=== PATIENT | female | born 1970 | race Caucasian/White ===

== ENCOUNTER 2017-05-26 06:33 | Inpatient (IN) | payer BC ==
--- NOTE | 2017-05-20 13:35 | RAD ---
INDICATION: Preoperative assessment for laparoscopic gastrectomy. Morbid obesity. History of tobacco use. COMPARISON: No relevant prior exams available on the [facility] [place]. TECHNIQUE: Dual energy PA and routine lateral views of the chest were obtained. REPORT: Clear lungs and pleural spaces. The heart, pulmonary vasculature, and mediastinal contours are unremarkable. Unremarkable osseous structures and soft tissue contours. IMPRESSION: No evidence for acute intrathoracic disease.
[~2017-05-26 06:33] MED LIST: Acetaminophen TAB* 325 MG PO ONE; Buffered Lidocaine 0.9% SYRIN* 5 ML/SYR SYRINGE INTRADERM ONE; Famotidine IV* 10 MG/ML 2 ML (20 mg) IV ONE; Metoclopramide IV* 5 MG/ML 2 ML VIAL IV SLOW PU ONE
[2017-05-26] MEDS ORDERED: Heparin VIAL(*) 5000 UNITS/ML VIAL (FIVE THOUSAND) ONE (06:46)
[2017-05-26] MEDS ORDERED: Acetaminophen TAB* 325 MG ONE (06:46)
[2017-05-26] MEDS ORDERED: Famotidine IV* 10 MG/ML 2 ML (20 mg) ONE (06:46)
[2017-05-26] MEDS ORDERED: Metoclopramide IV* 5 MG/ML 2 ML VIAL ONE (06:46)
[2017-05-26] MEDS ORDERED: Buffered Lidocaine 0.9% SYRIN* 5 ML/SYR SYRINGE ONE (06:46)
[2017-05-26] MEDS ORDERED: ceFAZolin 1 GM ADVAN(*) 1 GM ADDV.VIAL IVPB ONE (06:46)
[2017-05-26] MEDS ORDERED: ceFAZolin 2 GM PREMIX (*) 50 ML IVPB ONE (06:46)
[2017-05-26] MEDS ORDERED: Clindamycin 900 MG IVPREMIX(* 900 MG/50 ML SDV IV ONE (07:00)
[2017-05-26] MEDS ORDERED: Midazolam* 1 MG/ML 2 ML VIAL (2 MG) ONE (07:11)
[2017-05-26] MEDS ORDERED: Propofol* 10 MG/ML 20 ML BTL IV PUSH ONE (07:11)
[2017-05-26] MEDS ORDERED: Lidocaine 2% PF * 5 ML VIAL ONE (07:11)
[2017-05-26] MEDS ORDERED: Rocuronium* 10 MG/ML VIAL ONE (07:11)
[2017-05-26] MEDS ORDERED: fentaNYL* 50 MCG/ML 5 ML VIAL (250 MCG VIAL) ONE (07:11)
[2017-05-26] MEDS ORDERED: Bupivacaine 0.5% SDV PF* 30 ML VIAL ONE (07:12)
[2017-05-26] MEDS ORDERED: HYDROcodone/ACETAMIN 5-325 MG* 1 TAB PO PRN (08:47)
[2017-05-26] MEDS ORDERED: DiMENhydriNATE IV* 50 MG/ML VIAL IV PUSH PRN (08:47)
[2017-05-26] MEDS ORDERED: Scopolamine 1.5 mg* PATCH TRANSDERM PRN (08:47)
[2017-05-26] MEDS ORDERED: fentaNYL* 50 MCG/ML 2 ML VIAL (100 MCG VIAL) ONE ×2 (08:58→10:13)
[2017-05-26] MEDS ORDERED: Ketorolac INJ* 30 MG/ML 1 ML VIAL IV PRN (09:48)
[2017-05-26] MEDS ORDERED: diPHENhydraMINE IV* 50 MG/ML 1 ml VIAL (BENADRYL) SLOW PUSH PRN (09:48)
[2017-05-26] MEDS ORDERED: Acetaminophen ADULT LIQ* 650 MG/20.3 ML UDC PO PRN (09:48)
--- NOTE | 2017-05-26 09:59 | SURGPN ---
Brief Operative Note - Surgery Procedures: PREOP DX: MORBID OBESITY POSTOP DX: SAME AND HIATAL HERNIA PROC: LAP SLEEVE GASTRECTOMY AND REPAIR OF HIATAL HERNIA SURG: MECENAS ASSIST: LASHAY GALVIN: MEERA SALGADO EBL: MIN SPEC: PORTION OF STOMACH DRAIN/COMPL: NONE COND: STABLE; TO RR EXTUBATED; TO RR
[2017-05-26] MEDS ORDERED: DiMENhydriNATE IV* 50 MG/ML VIAL ONE (10:13)
[2017-05-26] MEDS ORDERED: hydrALAZINE IV* 20 MG/ML VIAL ONE (10:14)
[2017-05-26] MEDS: fentaNYL* 50 MCG/ML 2 ML VIAL (100 MCG VIAL) IV PRN ×4 (10:16→10:50)
[2017-05-26] MEDS ORDERED: Scopolamine 1.5 mg* PATCH ONE (10:39)
[2017-05-26] MEDS ORDERED: HYDROmorphone* 1 MG/ML 1 ML SYR ONE (10:59)
[2017-05-26] MEDS: HYDROmorphone* 1 MG/ML 1 ML SYR IV PRN ×2 (11:00→11:11)
[2017-05-26] MEDS ORDERED: Ondansetron INJ* 2 MG/ML VIAL ONE (11:04)
[2017-05-26] MEDS: Pantoprazole IV* 40 MG IV SCH (12:31)
[2017-05-26] MEDS: Ondansetron INJ* 2 MG/ML VIAL IV PRN ×2 (17:02→23:42)
[2017-05-26] MEDS: Metoclopramide IV* 5 MG/ML 2 ML VIAL IV PRN (18:00)
[2017-05-27] MEDS: Metoclopramide IV* 5 MG/ML 2 ML VIAL IV PRN ×2 (03:53→10:03)
[2017-05-27] MEDS: Pantoprazole IV* 40 MG IV SCH (07:41)
[2017-05-27] MEDS: Ondansetron INJ* 2 MG/ML VIAL IV PRN (08:50)
--- NOTE | 2017-05-27 08:53 | PN ---
Progress Note - Progress Note Date of Service: 05/27/17 SOAP: Subjective: Minimal pain. Some nausea last night but ok now. Denies CP, SOB. Objective: Vital Signs Temp 100.0 F 05/27/17 07:19 Pulse 95 05/27/17 07:19 Resp 16 05/27/17 07:40 BP 166/96 05/27/17 07:19 Pulse Ox 99 05/27/17 07:40 Gen: NAD Lungs: CTA B; decrease at bilat bases. Heart: reg s1s2 Abd: dressings c/d/i; ecchymosis at RUQ. Soft and NT. Intake & Output 05/26/17 05/27/17 05/27/17 18:59 06:59 18:59 Intake Total 2439 985 Output Total 1400 1950 Balance 1039 -965 Intake: IV Fluids 1750 985 3GM ANCEF 100 900MG CLINDAMYCIN 50 LR 1600 985 IVPB 689 LR 689 Oral 0 0 Output: Urine 1400 1950 Other: Estimated Void Large Assessment: POD#1 s/p LSG/HH repair. Low grade fever. Possible atelectasis? Plan: Will check UGI xray. Keep NPO. IVF. Ambulate/pulm toilet.
[2017-05-27] MEDS: D5W 1/2 NS KCl 20 Meq 1000 ML* 1,000 ML IV SCH ×2 (10:06→23:29)
--- NOTE | 2017-05-27 10:19 | RAD ---
CPT II Codes: 6045F. Indication: Sleeve gastrectomy, hiatal hernia repair. Approximately 1.3 minutes of fluoroscopy time was used. Fluoroscopic and radiographic examination of the upper GI series was performed. There is some nonspecific esophageal motility noted. No evidence of extraluminal contrast is noted. There is some failure of relaxation of the gastroesophageal junction. The distal esophagus demonstrates some fluid but eventually empties. IMPRESSION: There is some spasm at the gastroesophageal junction with mild esophageal decrease in motility. No evidence of obstruction is noted.
[2017-05-27] MEDS: HYDROmorphone* 1 MG/ML 1 ML SYR IV PRN ×2 (10:33→16:09)
--- NOTE | 2017-05-27 12:05 | OP ---
CC: Melvina Clancy MD, [place], [place] * DATE OF OPERATION: 05/26/17 - ROOM #353 DATE OF : 74 SURGEON: Kt Mayorga MD. ENGINEERING GEOLOGIST: Dr. Raghu Loyd. ANESTHESIOLOGIST: Dr. Kalli Rico. ANESTHESIA: General endotracheal. PRE-OP DIAGNOSES: Morbid obesity and hiatal hernia. POST-OP DIAGNOSES: Morbid obesity and hiatal hernia. OPERATIVE PROCEDURE: Laparoscopic sleeve gastrectomy and hiatal hernia repair. ESTIMATED BLOOD LOSS: Minimal. IV FLUIDS: 1.3 L crystalloid. SPECIMEN: Portion of the stomach. DRAINS: None. COMPLICATIONS: None. COUNTS: Instrument, needle, and sponge counts were correct. DESCRIPTION OF PROCEDURE: The patient was brought to the operating room and placed on the table supine. Sequential compression devices were placed on both lower extremities. She was administered general anesthesia. She was positioned and padded appropriately. She was administered appropriate intravenous antibiotics. She was prepped and draped in the usual sterile fashion and time-out was performed. Local anesthetic was infiltrated into the skin and soft tissue prior to making each incision. Entry into the abdomen was through a left upper quadrant incision to accommodate an optical trocar. After accessing the peritoneal cavity, carbon dioxide was insufflated to a pressure of 15 mmHg. Under direct visualization, a 12- mm bladeless trocar was placed in the supraumbilical, midline and right upper quadrant. A second 5-mm bladeless trocar was placed in the left upper quadrant laterally. A Alisha liver retractor was placed percutaneously in the subxiphoid position and used to elevate the left lobe of the liver. Initial inspection revealed normal-appearing gastric anatomy. The pylorus was identified and 6 cm proximal to this, the greater curvature of the stomach was skeletonized using the LigaSure device, dividing all the short gastric vessels all the way up to the gastroesophageal junction and visualizing the left jojo of the diaphragm. Posteriorly, there was noted to be evidence of a hiatal hernia with fat contained within it. Next, a sleeve gastrectomy was performed over a 40-Slovak bougie. The EndoGIA stapler with purple reinforced cartridges was used along the entirety of the stomach. Then to repair the hiatal hernia defect, the pars flaccida was opened and right jojo of the diaphragm was identified. A window was created from the right to the left side and a 0.25 inch Bamberg drain was placed to encircle the area of the gastroesophageal junction and the dissection was completed to visualize the hiatus. A single 0 Ti-Cron suture was used in [id number] fashion to approximate the diaphragmatic crura to about a 2 cm defect. Subsequently, the Bamberg drain was withdrawn. The specimen was retrieved using endoscopic retrieval bag through the right upper quadrant wound. Inspection revealed hemostasis to be excellent. Ports removed under direct visualization as well as the liver retractor and carbon dioxide was released. Skin incisions were then closed with lydia. Dressings were applied. The patient was awakened uneventfully and transferred to the recovery room in stable condition. [id number]/[facility] #: [id number] KARLO
[2017-05-27] MEDS ORDERED: Cetirizine* 10 MG TAB PO SCH (14:00)
[2017-05-27] MEDS ORDERED: Omeprazole CAP* 20 MG PO SCH (14:00)
[2017-05-27] MEDS ORDERED: NF:Mirabegron (NF) 50 MG TAB PO SCH (14:00)
[2017-05-27] MEDS: HYDROcodone/ACET. 7.5/325 LIQ* 15 ML UDC PO PRN (21:52)
[2017-05-27] MEDS: Heparin VIAL(*) 5000 UNITS/ML VIAL (FIVE THOUSAND) SUBCUT SCH (21:54)
[2017-05-28 07:53] VITALS: BP 169/97
[2017-05-28] MEDS: Heparin VIAL(*) 5000 UNITS/ML VIAL (FIVE THOUSAND) SUBCUT SCH (09:34)
[2017-05-28] MEDS: HYDROcodone/ACET. 7.5/325 LIQ* 15 ML UDC PO PRN (09:37)
--- NOTE | 2017-05-29 01:39 | DS ---
CC: Daniel Wilhelm * DISCHARGE SUMMARY: DATE OF ADMISSION: 05/26/17 DATE OF DISCHARGE: 05/28/17 ATTENDING SURGEON: Kt Mayorga MD * (DICTATED BY TAMARA ENGEL) HOSPITAL COURSE: Please refer to admission history and physical for admission details. The patient was taken to the operating room on 05/26/17 where she underwent laparoscopic sleeve gastrectomy with Dr. Mayorga. Surgery itself was uneventful. She did have significant nausea, the first postoperative day, and an upper GI was thus performed. The study did show some spasm at the GE junction with mild decrease in esophageal motility. There was no evidence of obstruction or extravasation of contrast. Thereafter, she was able to advance in bariatric clear liquid diet to the point where she was doing well both in terms of intake and pain control as of the morning of discharge. PHYSICAL EXAMINATION: On the morning of discharge, temperature 98.2, blood pressure 169/97, pulse 75, respirations 16, room air saturation 95%. She was examined earlier by Dr. Mayorga. IMPRESSION: Status post sleeve gastrectomy, doing well. PLAN: Discharge to home. She will continue her omeprazole at 20 mg daily. We discussed pain control. She has an appointment with Dr. Mayorga for followup at [facility] [place]. She has a prescription for liquid hydrocodone/APAP. TAMARA ENGEL [id number]/[facility] #: [id number] MTDD
[2017-05-29] MEDS ORDERED: Scopolomine PATCH Remove* 1 NOTE MISC PATCH OFF ONE (08:48)
== END 2017-05-28 11:00 | disposition home or self-care (01) | DRG 403 ==
LOC: AA 06:33 → SSU 12:13
PROVIDERS: ADMIT Surgery; ATTEND Surgery
PROC: 0BQS4ZZ (ICD-10-PCS; 2017-05-26)
PROC: 0BQR4ZZ (ICD-10-PCS; 2017-05-26)
PROC: 0DB64Z3 Excision of Stomach, Percutaneous Endoscopic Approach, Vertical (ICD-10-PCS; principal; 2017-05-26 07:45)
DX: E66.01 Morbid (severe) obesity due to excess calories (principal); G47.33 Obstructive sleep apnea (adult) (pediatric); K31.89 Other diseases of stomach and duodenum; K21.9 Gastro-esophageal reflux disease without esophagitis; M72.2 Plantar fascial fibromatosis; K44.9 Diaphragmatic hernia without obstruction or gangrene; R35.0 Frequency of micturition; M17.11 Unilateral primary osteoarthritis, right knee; Z82.49 Family history of ischemic heart disease and other diseases of the circulatory system; Z87.891 Personal history of nicotine dependence; Z87.442 Personal history of urinary calculi; Z68.41 Body mass index [BMI] 40.0-44.9, adult; R11.0 Nausea; R50.9 Fever, unspecified
CPT/HCPCS: 43775; 71020; 74246; 81025; 88307; 93005; 94760; A9270-GY; J0360; J0690; J1170; J1240; J1644; J1885; J2250; J2405; J2704; J2765; J3010

== ENCOUNTER 2018-01-19 07:34 | Day surgery (SDC) | payer BC ==
--- NOTE | 2018-01-11 09:27 | HP ---
PREOPERATIVE HISTORY AND PHYSICAL: DATE OF ADMISSION/SURGERY: 01/19/18 DATE OF OFFICE VISIT/ENCOUNTER: 01/04/18 ATTENDING SURGEON: Tessa Feng MD* (dictated by TAMARA Gary). PROCEDURE: Left thumb carpometacarpal arthroplasty. CHIEF COMPLAINT: Base of left thumb pain. HISTORY OF PRESENT ILLNESS: This is a 47-year-old female, who has had pain at the base of her left thumb over several years, which is gradually worsening. She has received cortisone injections in the past. The first injection did give her quite a bit of relief a couple of years actually; however, the pain returned and the second injection that she received did not last quite as long. She has also tried some bracing with minimal help. She is to point where she would like more permanent solution to this problem and has consented to proceed with surgical intervention in the form of a left thumb CMC arthroplasty. PAST MEDICAL HISTORY: 1. History of irritable bladder. 2. GERD. 3. Sarcoidosis. 4. Hiatal hernia. 5. Seasonal allergies. 6. Sleep apnea with CPAP. PAST SURGICAL HISTORY: 1. Cyst excision from right wrist. 2. Kidney stones. 3. [place] teeth extraction. 4. Gastric sleeve surgery in 2017. 5. Right knee arthroscopy. CURRENT MEDICATIONS: 1. Multivitamin daily. 2. Prilosec 40 mg every other day. 3. Vitamin B12 100 mcg daily. 4. Vitamin D3 daily. 5. Zyrtec Allergy 10 mg daily. ALLERGIES: No known drug allergies. FAMILY MEDICAL HISTORY: Breast cancer, colon cancer, multiple myeloma, and heart disease. 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 She denies tobacco use, recreational drug use, and does not drink alcohol. REVIEW OF SYSTEMS: General: Negative for fevers, chills, or night sweats. No know anesthesia problems. HEENT: Negative for headache, lightheadedness, or syncopal episodes. Integumentary: Negative for abrasions, lesions, or open wounds. Cardiothoracic: Negative for hypertension, chest pain, palpitations, and edema. Pulmonary: Negative for shortness of breath with exertion, chronic cough, COPD. GI: Negative for nausea, vomiting, diarrhea, constipation, or GERD. : Negative for nocturia, urinary frequency, urgency, history of UTIs, and kidney problems. Musculoskeletal: Positive for current complaint. Neurologic: Negative for paresthesias, numbness, history of seizure, or stroke. Endocrine: Negative for diabetes and thyroid issues. Hematologic: Negative for easy bruising, anemia, excessive bleeding, history of DVT. Infectious Disease: Negative for history of MRSA, hepatitis C, HIV. PHYSICAL EXAMINATION GENERAL: Well-developed, well-nourished, 47-year-old female in no acute distress. VITAL SIGNS: Height 5 feet 6 inches, weight 280 pounds, blood pressure 128/84, pulse rate 64. HEENT: Normocephalic, atraumatic. Pupils are equal, round, and reactive to light and accommodation. Extraocular movements are intact. Throat is clear. NECK: Supple. No palpable lymph nodes. PULMONARY: Lungs are clear to auscultation bilaterally. No wheezes, rales, or rhonchi. CARDIOVASCULAR: Regular rate and rhythm. S1, S2. No murmurs, rubs, or gallops. No edema. ABDOMEN: Positive bowel sounds, soft, nontender. NEUROLOGIC: Alert and oriented x3. Cranial nerves II through XII intact. Sensation is intact to light touch. MUSCULOSKELETAL: On exam of left hand, there is tenderness to palpation of the thumb CMC joint, relatively good motion with slight increase in pain at the extremes of opposition and abduction. There is no clicking or locking. There is a positive grind test and neurovascular function is intact. IMAGING STUDIES: X-rays, AP and lateral, of the left thumb show advanced osteoarthritis at the basal joint of the thumb with associated loose bodies of the volar radial margin at the joint. IMPRESSION: Left thumb carpometacarpal joint osteoarthritis. PLAN: The patient is scheduled to undergo a left thumb carpometacarpal joint arthroplasty with Dr. Feng on 01/19/18. She will return to the office 10 days after surgery for followup and suture removal. A prescription for [place] was e- scribed to the patient's pharmacy for postoperative pain management. TAMARA GARY [id number]/[facility] #: [id number] KARLO
[~2018-01-19 07:34] MED LIST changes: -Acetaminophen TAB* 325 MG PO ONE; +Dexamethasone IV* 4 MG/ML 1 ML (4 MG) IV SLOW PU ONE; -Famotidine IV* 10 MG/ML 2 ML (20 mg) IV ONE; +Famotidine TAB* 20 MG PO ONE; -Metoclopramide IV* 5 MG/ML 2 ML VIAL IV SLOW PU ONE
[2018-01-19] MEDS ORDERED: Famotidine TAB* 20 MG ONE (07:54)
[2018-01-19] MEDS ORDERED: ceFAZolin 2 GM PREMIX (*) 2 GM/50 ML BAG IVPB ONE (07:55)
[2018-01-19] MEDS ORDERED: Dexamethasone IV* 4 MG/ML 1 ML (4 MG) ONE (07:55)
[2018-01-19] MEDS ORDERED: Lidocaine 0.5%* 50 ML SDV ONE ×2 (08:07→08:08)
[2018-01-19] MEDS ORDERED: fentaNYL* 50 MCG/ML 2 ML VIAL (100 MCG VIAL) ONE (08:31)
[2018-01-19] MEDS ORDERED: Midazolam* 1 MG/ML 2 ML VIAL (2 MG) ONE (08:34)
[2018-01-19] MEDS ORDERED: Bupivacaine 0.5% SDV PF* 30ML VIAL ONE (08:56)
[2018-01-19] MEDS ORDERED: Naloxone* 0.4 MG/ML 1 ML VIAL IV PRN (09:50)
[2018-01-19] MEDS ORDERED: HYDROmorphone INJ* 1 MG/ML CARPUJECT SYRINGE IV PRN (09:50)
[2018-01-19] MEDS ORDERED: Ondansetron INJ* 2 MG/ML VIAL IV PRN (09:50)
[2018-01-19] MEDS ORDERED: fentaNYL* 50 MCG/ML 2 ML VIAL (100 MCG VIAL) IV PRN (09:50)
[2018-01-19] MEDS ORDERED: HYDROcodone/ACETAMIN 5-325 MG* 1 TAB ONE (10:16)
[2018-01-19 11:09] VITALS: BP 104/69
--- NOTE | 2018-01-19 18:34 | OP ---
DATE OF OPERATION: 01/19/18 - [facility] DATE OF : 74 SURGEON: Tessa Feng MD REFRIGERATION ENGINEER: TAMARA Gary ANESTHESIA: IV regional. PRE-OP DIAGNOSIS: Left thumb carpometacarpal arthritis. POST-OP DIAGNOSIS: Left thumb carpometacarpal arthritis. OPERATIVE PROCEDURE: Left thumb CMC arthroplasty. ESTIMATED BLOOD LOSS: Zero. TOURNIQUET TIME: 43 minutes. INDICATIONS FOR PROCEDURE: Taylor is a 47-year-old woman with painful arthritis at the base of her left thumb. X-rays show severe degenerative arthritis with loose bodies. She presents for left thumb CMC arthroplasty. DESCRIPTION OF PROCEDURE: The patient was brought to the operating room, was given a sedation anesthetic and an IV regional anesthetic with a tourniquet around her left upper arm. Skin of her left upper extremity was prepped and draped in usual sterile fashion. The area of the incision was infiltrated with 10 cc of Marcaine, 0.5% plain and an additional 10 cc at the end of the surgery. An S-shaped incision was made, centered at the thumb CMC joint at the dorsal radial aspect, dissected bluntly through the subcutaneous tissue and branches of the radial sensory nerve were located and retracted by the surgical garment assembler, Kaelyn Ocampo, whose assistance was essential to safely complete the case. The EPB and APL tendons were identified and retracted and then the radial artery was carefully dissected off of the CMC joint capsule and retracted by the surgical garment assembler. A distally based U- shaped flap was created at the thumb CMC joint capsule and was subperiosteally dissected off of the trapezium. Trapezium was then removed in its entirety and the FCR tendon and floor of the wound was in very good condition. The wound was irrigated and then the CMC joint capsule was secured to the FCR tendon with a 4-0 nylon suture. This gave a marked improvement in the abduction position of the metacarpal; however, the patient still had some mild extension of the MP joint, so the EPB tendon was transected and secured to the APL tendon. This gave a very nice position of both the CMC and MP joints. The remainder of the CMC joint capsule was repaired with 4-0 nylon suture and then the skin edges were reapproximated with 4-0 nylon suture. The wound was dressed with Xeroform, 4 x 4, Webril, and an Onel wrap with a thumb spica splint keeping the thumb metacarpal abducted. The patient tolerated the procedure well and was brought to the recovery room in good condition. [id number]/[facility] #: [id number] KARLO
== END 2018-01-19 10:51 | disposition home or self-care (01) ==
LOC: OREAST 07:34
PROVIDERS: ATTEND Orthopaedic Surgery
DX: M18.12 Unilateral primary osteoarthritis of first carpometacarpal joint, left hand (principal); G47.33 Obstructive sleep apnea (adult) (pediatric); D86.9 Sarcoidosis, unspecified; K21.9 Gastro-esophageal reflux disease without esophagitis; J30.2 Other seasonal allergic rhinitis; M19.90 Unspecified osteoarthritis, unspecified site
CPT/HCPCS: 81025; 88304; 88311; A9270-GY; J0690; J1100; J2250; J3010

== ENCOUNTER 2019-03-16 09:15 | Day surgery (SDC) | payer BC ==
[~2019-03-16 09:15] MED LIST changes: -Buffered Lidocaine 0.9% SYRIN* 5 ML/SYR SYRINGE INTRADERM ONE; +Buffered Lidocaine 1% SYRIN* 1 ML/SYRINGE INTRADERM ONE; -Dexamethasone IV* 4 MG/ML 1 ML (4 MG) IV SLOW PU ONE; -Famotidine TAB* 20 MG PO ONE; +Lactated Ringers 1000 ML Bag* 1,000 ML IV SCH
[2019-03-16] MEDS ORDERED: ceFAZolin 2 GM in NS PREMIX(*) 2 GM/100 ML BAG IVPB ONE (09:48)
[2019-03-16] MEDS ORDERED: Buffered Lidocaine 1% SYRIN* 1 ML/SYRINGE INTRADERM ONE (09:48)
[2019-03-16] MEDS ORDERED: Bupivacaine 0.25% SDV PF* 10 ML VIAL INJ ONE (10:53)
[2019-03-16] MEDS ORDERED: Lidocaine 2% PF * 5 ML VIAL ONE (11:05)
[2019-03-16] MEDS ORDERED: fentaNYL* 50 MCG/ML 2 ML VIAL (100 MCG VIAL) ONE ×3 (11:05→13:53)
[2019-03-16] MEDS ORDERED: Propofol* 10 MG/ML 20 ML BTL ONE ×2 (11:05→11:52)
[2019-03-16] MEDS ORDERED: Dexamethasone IV* 4 MG/ML 1 ML (4 MG) ONE (11:05)
[2019-03-16] MEDS ORDERED: Rocuronium* 10 MG/ML VIAL ONE (11:06)
[2019-03-16] MEDS ORDERED: Bupivacaine 0.25% W/EPI* 10 ML SDV ONE (11:11)
[2019-03-16] MEDS ORDERED: Ondansetron INJ* 2 MG/ML VIAL ONE ×2 (11:30→13:23)
[2019-03-16] MEDS ORDERED: Ketorolac INJ* 30 MG/ML 1 ML VIAL ONE (11:30)
[2019-03-16] MEDS ORDERED: fentaNYL* 50 MCG/ML 2 ML VIAL (100 MCG VIAL) IV PRN (12:11)
[2019-03-16] MEDS ORDERED: Glycopyrrolate IV* 0.2 MG/ML 1 ML VIAL ONE (12:11)
[2019-03-16] MEDS ORDERED: Ondansetron INJ* 2 MG/ML VIAL IV PRN (12:11)
[2019-03-16] MEDS ORDERED: Neostigmine Methylsulfate* 1 MG/ML 10 ML VIAL (1 mg/ml) ONE (12:11)
[2019-03-16] MEDS ORDERED: Naloxone* 0.4 MG/ML 1 ML VIAL IV PRN (12:11)
--- NOTE | 2019-03-16 12:38 | OP ---
Operative Report - Blank - Operative Report Date of Operation: 03/16/19 Note: Operative Note Preoperative DX: biliary colic Postoperative DX: biliary colic Procedure: laproscopic cholecystectomy Anesthesia: SIERRA Surgeon: Kt Mayorga Assist: Alex Rivas; Gunjan Patterson EBL:10ml Specimen: gallbladder Fluids: 1700 LR Drains: n/a Finding: dictated
[2019-03-16 14:40] VITALS: BP 126/83
== END 2019-03-16 14:50 | disposition home or self-care (01) ==
LOC: OR 09:15
PROVIDERS: ATTEND Surgery
DX: K80.10 Calculus of gallbladder with chronic cholecystitis without obstruction (principal); R10.11 Right upper quadrant pain; Z98.84 Bariatric surgery status; K21.9 Gastro-esophageal reflux disease without esophagitis; G47.33 Obstructive sleep apnea (adult) (pediatric); M19.90 Unspecified osteoarthritis, unspecified site; Z87.891 Personal history of nicotine dependence
CPT/HCPCS: 47562; 81025; 88304; J0690; J1100; J1885; J2405; J2704; J2710; J3010; J3490

== ENCOUNTER 2021-01-29 05:53 | Observation (INO) ==
[2021-01-29] MEDS ORDERED: DiMENhydriNATE IV 50 mg/ml 1 ml VIAL IV PUSH ONE (06:00)
[2021-01-29] MEDS ORDERED: Buffered Lidocaine 1% SYRIN 1 ml INTRADERM ONE (06:00)
[2021-01-29] MEDS ORDERED: Lactated Ringers 1000 ml BAG 1,000 ML IV SCH ×2 (06:00→11:00)
[2021-01-29] MEDS ORDERED: ceFAZolin 2 GM PREMIX 2 GM/50 ML BAG ONE (06:22)
[2021-01-29] MEDS ORDERED: DiMENhydriNATE IV 50 mg/ml 1 ml VIAL ONE (06:22)
[2021-01-29] MEDS ORDERED: Bupivacaine 0.5% SDV PF 30ML VIAL ONE (06:52)
[2021-01-29] MEDS ORDERED: Dexamethasone IV 4 MG/ML VIAL 1 ml VIAL ONE ×2 (07:03→07:09)
[2021-01-29] MEDS ORDERED: fentaNYL 100 mcg/2 ml 50 MCG/ML VIAL ONE (07:03)
[2021-01-29] MEDS ORDERED: Midazolam 2 mg/2 ml VIAL 1 mg/ml 2 ml VIAL (2 mg) ONE ×2 (07:03→07:09)
[2021-01-29] MEDS ORDERED: Glycopyrrolate IV 0.2 MG/ML 1 ML VIAL ONE (07:09)
[2021-01-29] MEDS ORDERED: Ondansetron 4 mg VIAL 2 MG/ML 2 ml VIAL ONE (07:09)
[2021-01-29] MEDS ORDERED: Propofol 10 MG/ML 20 ML BTL ONE ×2 (07:09→08:50)
[2021-01-29] MEDS ORDERED: Lidocaine 2% PF 5 ML VIAL ONE (07:12)
[2021-01-29] MEDS ORDERED: Ropivacaine 5 MG/ML 20 ML VIAL 0.5% (100 MG) ONE (07:12)
[2021-01-29] MEDS ORDERED: Phenylephrine IV 10 MG/ML 1 ml VIAL ONE (08:08)
[2021-01-29] MEDS ORDERED: diPHENhydraMINE IV 50 MG/ML 1 ml VIAL (BENADRYL) IV PRN (10:10)
[2021-01-29] MEDS ORDERED: Magnesium Hydroxide LIQ 30 ML UDC PO PRN (10:10)
[2021-01-29] MEDS ORDERED: diPHENhydraMINE 25 mg TAB PO PRN (10:10)
[2021-01-29] MEDS ORDERED: Morphine 2 MG/ML SYRINGE IV PRN (10:10)
[2021-01-29] MEDS ORDERED: Lactulose 30 ml UDC PO PRN (10:10)
[2021-01-29] MEDS ORDERED: Prochlorperazine 5 mg/ml 2 ml VIAL (10 mg) IV PRN (10:20)
[2021-01-29] MEDS ORDERED: Metoclopramide 5 MG/ML VIAL (10 mg) IV PRN (12:02)
[2021-01-29] MEDS ORDERED: fentaNYL 100 mcg/2 ml 50 MCG/ML VIAL IV PRN (12:02)
[2021-01-29] MEDS ORDERED: HYDROcodone/ACETAMIN 5/325 mg TAB PO PRN (12:02)
[2021-01-29] MEDS ORDERED: Naloxone 0.4 mg VIAL 0.4 mg/ml 1 ml VIAL IV PRN (12:02)
[2021-01-29] MEDS ORDERED: Ondansetron 4 mg VIAL 2 MG/ML 2 ml VIAL IV PRN (12:02)
[2021-01-29] MEDS: ceFAZolin 1 GM ADVAN 1 GM in NS 0.9% 50 ML 50 ML IVPB SCH (16:31)
[2021-01-29] MEDS: Magnesium Hydroxide LIQ 30 ML UDC PO SCH (20:26)
[2021-01-29] MEDS ORDERED: HYDROmorphone 1 MG/1 ML SYRINGE IV SLOW PU PRN (20:35)
[2021-01-29] MEDS: oxyCODONE SR 10 mg TAB PO SCH (21:34)
[2021-01-30] MEDS: ceFAZolin 1 GM ADVAN 1 GM in NS 0.9% 50 ML 50 ML IVPB SCH ×2 (00:09→07:48)
[2021-01-30 07:19] LABS: Hematocrit 37 % (35-47); Hemoglobin 12.1 g/dL (12.0-16.0); Mean Platelet Volume 8.6 fL (7.4-10.4); Platelet Count 238 10^3/uL (150-450)
[2021-01-30 07:29] LABS: Potassium 3.6 mmol/L (3.5-5.0)
[2021-01-30 07:30] LABS: Calcium 8.5 mg/dL (8.6-10.3); EGFR Non-African American 123.1 (>60)
[2021-01-30] MEDS ORDERED: Vitamin THERAPEUTIC TAB PO SCH (09:00)
[2021-01-30] MEDS: oxyCODONE SR 10 mg TAB PO SCH (09:25)
[2021-01-30] MEDS: Magnesium Hydroxide LIQ 30 ML UDC PO SCH (09:25)
[2021-01-30 11:02] VITALS: BP 141/81
== END 2021-01-30 13:08 | disposition home or self-care (01) ==
LOC: SSU 05:53 → OR 05:53 → EDSTATUS 07:30
PROVIDERS: ADMIT Orthopaedic Surgery Adult Reconstructive Orthopaedic Surgery; ATTEND Orthopaedic Surgery Adult Reconstructive Orthopaedic Surgery

== ENCOUNTER 2023-08-20 10:11 | Observation (INO) ==
[~2023-08-20 10:11] MED LIST changes: +Buffered Lidocaine 1% SYRIN 1 ml INTRADERM ONE; -Buffered Lidocaine 1% SYRIN* 1 ML/SYRINGE INTRADERM ONE; +Famotidine IV 10 MG/ML 2 ml VIAL (20 mg) IV ONE; +Glycopyrrolate IV 0.2 MG/ML 1 ML VIAL ONE; -Lactated Ringers 1000 ML Bag* 1,000 ML IV SCH; +Lactated Ringers 1000 ml BAG 1,000 ML IV SCH; +Lidocaine 2% PF 5 ML VIAL ONE; +Midazolam 2 mg/2 ml VIAL 1 mg/ml 2 ml VIAL (2 mg) ONE; +Ondansetron 4 mg VIAL 2 MG/ML 2 ml VIAL ONE; +fentaNYL 100 mcg/2 ml 50 MCG/ML VIAL ONE
[2023-08-20 10:53] LABS: Rapid COVID-19 Molecular Undetected (Undetected)
[2023-08-20] MEDS ORDERED: ceFAZolin 2 GM PREMIX 2 GM/50 ML BAG ONE (11:07)
[2023-08-20] MEDS ORDERED: Tranexamic Acid 1 GM/100ML BAG 2,000 MG/200 ML BAG IV ONE (11:07)
[2023-08-20] MEDS ORDERED: Famotidine IV 10 MG/ML 2 ml VIAL (20 mg) ONE (11:07)
[2023-08-20] MEDS ORDERED: fentaNYL 100 mcg/2 ml 50 MCG/ML VIAL IV PRN (11:37)
[2023-08-20] MEDS ORDERED: HYDROmorphone 1 MG/1 ML SYRINGE IV PRN (11:37)
[2023-08-20] MEDS ORDERED: Naloxone 0.4 mg VIAL 0.4 mg/ml 1 ml VIAL IV PRN (11:37)
[2023-08-20] MEDS ORDERED: Ondansetron 4 mg VIAL 2 MG/ML 2 ml VIAL IV PRN (11:37)
[2023-08-20] MEDS ORDERED: ROPIVACAINE 5 MG/ML 30 ML BTL (0.5%) ONE ×2 (12:00→12:02)
[2023-08-20] MEDS ORDERED: fentaNYL 100 mcg/2 ml 50 MCG/ML VIAL ONE (12:02)
[2023-08-20] MEDS ORDERED: Midazolam 2 mg/2 ml VIAL 1 mg/ml 2 ml VIAL (2 mg) ONE (12:02)
[2023-08-20] MEDS ORDERED: Bupivacaine-MPF SPINAL 7.5 MG/ML - 2ML AMP ONE (13:10)
[2023-08-20] MEDS ORDERED: Lidocaine 2% PF 5 ML VIAL ONE (13:24)
[2023-08-20] MEDS ORDERED: Propofol 10 MG/ML 20 ML BTL ONE (14:29)
[2023-08-20] MEDS ORDERED: Magnesium Hydroxide LIQ 30 ML UDC PO PRN (15:42)
[2023-08-20] MEDS ORDERED: Morphine 2 MG/ML SYRINGE IV PRN (15:42)
[2023-08-20] MEDS ORDERED: Lactulose 30 ml UDC PO PRN (15:42)
[2023-08-20] MEDS ORDERED: Prochlorperazine 5 mg/ml 2 ml VIAL (10 mg) IV PRN (15:45)
[2023-08-20] MEDS ORDERED: Lactated Ringers 1000 ml BAG 1,000 ML IV SCH (16:00)
[2023-08-20] MEDS: ceFAZolin 1 GM ADVAN 1 GM in NS 0.9% 50 ML 50 ML IVPB SCH (21:11)
[2023-08-20] MEDS: Magnesium Hydroxide LIQ 30 ML UDC PO SCH (21:15)
[2023-08-21] MEDS: ceFAZolin 1 GM ADVAN 1 GM in NS 0.9% 50 ML 50 ML IVPB SCH ×2 (05:41→13:03)
[2023-08-21 06:57] LABS: Hematocrit 34.8 % (35-45); Hemoglobin 11.7 g/dL (11.5-14.3); Mean Platelet Volume 8.3 fL (7.5-11.2); Platelet Count 245 10^3/uL (150-450)
[2023-08-21 07:48] LABS: Calcium 8.5 mg/dL (8.6-10.3); Creatinine, Serum 0.58 mg/dL (0.51-0.95); Potassium 3.6 mmol/L (3.5-5.0); eGFR CKD-EPI 109.5 (>60)
[2023-08-21] MEDS ORDERED: Influenza vaccine *QUAD* *2023-24* 0.5 ML SYRINGE IM ONE (09:00)
[2023-08-21] MEDS ORDERED: Vitamin THERAPEUTIC TAB PO SCH (09:00)
[2023-08-21] MEDS: Magnesium Hydroxide LIQ 30 ML UDC PO SCH (09:27)
[2023-08-21 14:51] VITALS: BP 167/108
== END 2023-08-21 16:15 | disposition home or self-care (01) ==
LOC: SSU 10:11 → OR 10:11
PROVIDERS: ADMIT Orthopaedic Surgery Adult Reconstructive Orthopaedic Surgery; ATTEND Orthopaedic Surgery Adult Reconstructive Orthopaedic Surgery